=== PATIENT | female | born 1985 | race Caucasian/White ===

== ENCOUNTER 2023-05-05 11:40 | Emergency (ER) | payer BC, SELFPAY ==
--- NOTE | ~2023-05-05 | CT_ITS ---
EXAMINATION: CT brain wo con DATE: 05/05/2023 14:29 INDICATION: Syncopal episodes 6 days ago. Still feels off. TECHNIQUE: Computed tomography (CT) of the head was performed without intravenous contrast. The mA wa s adjusted according to patient size. Iterative reconstruction technique was employed. Exam dose: 60 5.33 mGy-cm total exam DLP. COMPARISON: None FINDINGS: No intracranial mass lesion or hemorrhage or cerebrovascular accident. Normal ventricular s ize. Normal freeman-white matter differentiation. No midline shift or mass effect. There is minimal mucoperiosteal thickening of the maxillary sinuses, right sphenoid sinus and patchy soft tissue thickening the ethmoid air cells, right greater than left. The mastoid air cells are normally developed and aerated. No fracture or bone destruction of the cranial vault. IMPRESSION: No intracranial abnormality Reviewed, dictated and finalized at [facility]. Reviewed, dictated and finalized at [facility]. IMPRESSION: No intracranial abnormality
[2023-05-05 11:43] VITALS: BP 141/91; PULSE 88; RESP 18; TEMP 36.5; O2SAT 100
--- NOTE | 2023-05-05 13:53 | ECG_ITS ---
Measurements Intervals [place] Rate: 46 P: 50 AK: 151 QRS: 18 QRSD: 77 T: 27 QT: 373 QTc: 329 Interpretive Statements SINUS RHYTHM NON-CONDUCTED ATRIAL PREMATURE COMPLEX MINIMAL Q WAVES- INFERIOR LEADS BASELINE ARTIFACT- I, III, AVL BORDERLINE ECG NO PREVIOUS ECG AVAILABLE FOR COMPARISON Electronically Signed On 05-05-2023 16:17:50 CDT by Nish Glass D.O.
[2023-05-05] MEDS: SODIUM CHLORIDE 0.9% IV 1,000 ML 999 ML IV CONT (14:19)
[2023-05-05 14:28] LABS: Basophils Percent Auto 0.7 % (0.2-1.2); Eosinophils Absolute Auto 0.2 K/mm3 (0-0.3); Eosinophils Percent Auto 2.7 % (0-4.4); Hemoglobin 12.6 g/dL (12.0-15.0); Immature Granulocyte Absolute 0.02 K/mm3 (0.00-0.031); Immature Granulocyte Percent A 0.3 % (0-0.5); Lymphocytes Absolute Auto 1.69 K/mm3 (0.9-3.2); Lymphocytes Percent Auto 28.4 % (18.3-44.2); Mean Corpuscular HGB Conc 32.3 g/dl (32-36); Mean Corpuscular Volume 86.7 fl (80-100); Monocytes Absolute Auto 0.4 K/mm3 (0.1-0.6); Monocytes Percent Auto 6.5 % (2.6-8.5); Neutrophils Absolute Auto 3.7 K/mm3 (1.3-6.7); Neutrophils Percent Auto 61.4 % (45.5-73.1); Platelet Count Result 252 k/mm3 (150-375); Red Cell Distribution Width 13.3 % (11.5-14.5)
[2023-05-05 14:31] LABS: Appearance Urine Clear (Clear); Bilirubin Urine Negative (Negative); Blood Urine Negative (Negative); Color Urine Yellow (Yellow); Glucose Urine UA Negative (Negative); Ketones Urine 2+ mg/dL (Negative); Leukocyte Esterase Ur Negative LEU/UL (Negative); Nitrate Urine Negative (Negative); Protein Urine Negative (Negative); Specific Grav Ur 1.024 (1.001-1.035); Urobilinogen Urine 0.2 mg/dL (<2.0); pH Urine 5.5 (5.0-9.0)
[2023-05-05 14:38] LABS: Alanine Aminotransferase 22 U/L (6-35); Albumin Level 4.1 g/dL (3.5-5.1); Alkaline Phosphatase 51 U/L (38-126); Anion Gap 7 mmol/L (8-16); Aspartate Amino Transferase 21 U/L (14-36); Bilirubin,Total 0.3 mg/dL (0.2-1.3); Blood Urea Nitrogen 14 mg/dL (7-17); Calcium 8.5 mg/dL (8.4-10.2); Carbon Dioxide 26 mmol/L (22-30); Chloride 104 mmol/L (98-107); Estimated CRCL calculation 120 ml/min; Estimated Glomerular Filt Rate > 60; Glucose 89 mg/dL (65-110); Potassium 4.1 mmol/L (3.4-5.0); Sodium 137 mmol/L (137-145)
[2023-05-05 14:39] VITALS: PULSE 71; RESP 18
[2023-05-05 14:45] LABS: D Dimer 0.29 ug/mL (<0.48)
[2023-05-05 14:46] LABS: Add Urine Microscopic? NO
[2023-05-05 14:49] LABS: Troponin I < 0.012 ng/mL (0.000-0.034)
[2023-05-05 15:15] VITALS: BP 126/79; PULSE 77
[2023-05-05 15:20] VITALS: BP 127/82; PULSE 68
[2023-05-05 15:25] VITALS: BP 126/69; PULSE 86
--- NOTE | 2023-05-05 16:35 | ED.GENADULT ---
HPI - General Adult General Chief complaint: Unspecified Stated complaint: feels out of it Time Seen by Provider: 05/05/23 13:28 History of Present Illness HPI narrative: Jennifer Dowling is a 37 y/o female who presents today with reports of having a syncopal episode this past (6 days ago). She reports she was having increased low back pain that is her usual chronic pain and she was doing some stretching and then she stood up to do more stretching and she passed out. She report she was on the phone at the time and then she woke up what she states was seconds later to her phone ringing. She states that she got back up and felt normal. She became concerned with the incident and went to an UC 4 days ago and had a work up done and was told everything was normal. She went to work on Wednesday and today but she said she still feels a little out of it and decided to get checked out here. She denies headache/vision changes/ chest pain/shortness of breath / abdominal pain/ nausea/vomiting/ fever/chills. She reports she also went to see her chiropractor yesterday and her back pain is gone now. Related Data Allergies Allergy/AdvReac Type Severity Reaction Status Date / Time No Known Allergies Allergy Verified 05/05/23 11:41 Review of Systems Review of Systems: CONSTITUTIONAL: Denies fever, chills, or sweats. Reports feeling out of it. EYES: Denies visual changes, redness, or discharge. ENT: Denies rhinorrhea, congestion, sore throat, or otalgia. CARDIOVASCULAR: Denies chest pain, palpitations, or edema. RESPIRATORY: Denies cough or dyspnea. GASTROINTESTINAL: Denies abdominal pain, nausea, vomiting, or diarrhea. GENITOURINARY: Denies dysuria or hematuria. SKIN: Denies rash or itching. MUSCULOSKELETAL: Denies back pain, joint pain, or myalgia. NEUROLOGIC: Denies headache, numbness, dizziness, or weakness. PSYCHIATRIC: Denies anxiety or depression. Exam Narrative: GENERAL: Well-appearing, well-nourished, and in no acute distress. HEAD: Normocephalic, atraumatic. EYES: PERRLA and EOMI. ENT: Nares clear, no rhinorrhea or epistaxis. Mucous membranes moist. Oropharynx without tonsillar hypertrophy exudate or other lesions. NECK: Supple. No adenopathy or masses. No carotid bruits or JVD CHEST: Clear to auscultation. No respiratory distress. No wheezes rales or rhonchi HEART: Regular rate and rhythm. No murmur heard. Normal peripheral pulses. ABDOMEN: Soft, nontender, nondistended, normal active bowel sounds. EXTREMITIES: Normal range of motion. No edema. SKIN: Warm, dry, no rash. NEURO: No focal deficits. Alert and oriented x3. PSYCH: Normal mood and affect. Course Vital Signs Vital signs: Vital Signs Temperature 36.5 C 05/05/23 11:43 Pulse Rate 88 05/05/23 11:43 Respiratory Rate 18 05/05/23 11:43 Blood Pressure 141/91 H 05/05/23 11:43 Pulse Oximetry 100 05/05/23 11:43 Oxygen Delivery Room Air 05/05/23 11:43 Temperature 36.5 C 05/05/23 11:43 Pulse Rate 86 05/05/23 15:25 Respiratory Rate 18 05/05/23 14:39 Blood Pressure 126/69 05/05/23 15:25 Pulse Oximetry 100 05/05/23 11:43 Oxygen Delivery Room Air 05/05/23 11:43 Medical Decision Making MDM Narrative Medical decision making narrative: On exam pt is alert and oriented X 4, ambulatory without difficulty Neuro exam is grossly intact, no neuro deficits appreciated on exam Lung sounds clear, no peripheral swelling/ calf pain/ Pupils equal and reactive, EOM intact no nystagmus noted. Patient does not report of dizziness/light headed just feels a little off. Labs checked and are stable, CT is negative for acute findings. Urine shows ketones but no infection Talked with pt regarding her results and she states she is also doing the Keto diet and that could explain the ketones in her urine and she has not had much water today IV fluids given here explained to pt that her exam and results are stable , discussed with he
[2023-05-05 17:15] VITALS: PULSE 89; RESP 20; O2SAT 98
[2023-05-05 21:49] LABS: Glucose Point of Care 90 mg/dl (65-105)
== END 2023-05-05 17:16 | disposition home or self-care (01) ==
PROVIDERS: Emergency Provider Nurse Practitioner Family
DX: R55 Syncope and collapse (principal); M54.50 Low back pain, unspecified; G89.29 Other chronic pain; I49.1 Atrial premature depolarization
CPT/HCPCS: 36415; 70450; 80053; 81003; 81025; 82948; 83735; 84484; 85025; 85380; 93005; 96360; 99284; J7030